=== PATIENT | male | born 1970 | race Caucasian/White ===

== ENCOUNTER 2021-11-07 18:25 | Emergency (ER) | payer OTHER ==
[~2021-11-07 18:25] MED LIST: Bactrim Ds Tab1 EACH PO; CEPH500 PO; CLON2 PO; ERYT.5TO BOTHEYES; HYDACE5 PO; IBUP800 PO; RXTRAM50 PO; TOCO1000 PO; TRAM50 PO
== END 2021-11-07 19:30 | disposition left against medical advice (07) ==
LOC: ER 18:25
DX: Z53.21 Procedure and treatment not carried out due to patient leaving prior to being seen by health care provider (principal)

== ENCOUNTER 2023-08-29 01:48 | Emergency (ER) | payer OTHER ==
[~2023-08-29] VITALS: Ht 185.4 cm; Wt 81.7 kg
[2023-08-29 02:12] VITALS: BP 147/87
[2023-08-29] MEDS ORDERED: Amoxicillin/Clavulanate K 875 MG Tab PO ONE (03:15)
[2023-08-29] MEDS ORDERED: Tetanus and Diphtheria Toxoid 0.5 ML INJ IM ONE (03:15)
[2023-08-29] MEDS ORDERED: AMOCLA875 PO (03:17)
== END 2023-08-29 03:37 | disposition home or self-care (01) ==
LOC: ER 01:48
DX: S81.052A Open bite, left knee, initial encounter (principal); Z59.00 Homelessness unspecified; Z23 Encounter for immunization; F17.200 Nicotine dependence, unspecified, uncomplicated; W54.0XXA Bitten by dog, initial encounter; Y92.89 Other specified places as the place of occurrence of the external cause; Y93.01 Activity, walking, marching and hiking
CPT/HCPCS: 90471; 90714; 99283-25; A9270